=== PATIENT | male | born 1955 | race Caucasian/White ===

== ENCOUNTER → 2018-02-13 | Outpatient (CLI) | payer OTHER | LOC: GMAJ 11:00 | PROVIDERS: ATTEND Family Medicine | DX: Z12.5 Encounter for screening for malignant neoplasm of prostate (principal) ==

== ENCOUNTER → 2018-08-25 | Outpatient (CLI) | payer OTHER | LOC: GMAJ 14:38 | PROVIDERS: ATTEND Family Medicine | DX: Z12.5 Encounter for screening for malignant neoplasm of prostate (principal) ==

== ENCOUNTER → 2018-10-24 | Outpatient (CLI) | payer OTHER | LOC: LAB.O 10:56 | PROVIDERS: ATTEND Internal Medicine Nephrology | DX: N18.4 Chronic kidney disease, stage 4 (severe) (principal); Z79.899 Other long term (current) drug therapy ==

== ENCOUNTER → 2018-12-19 | Outpatient (CLI) | payer OTHER ==
--- NOTE | 2018-12-21 12:47 | US ---
EXAM DESCRIPTION: Renal Arteries CLINICAL HISTORY: 63 years Male, ESSENTIAL HYPERTENSION COMPARISON: None. FINDINGS: Renal artery ultrasound was performed. Peak systolic velocity abdominal aorta 71 cm/s The proximal right renal artery is not visualized. Peak systolic velocity mid right renal artery 69 cm/s, resistive index 0.77 Peak systolic velocity distal right renal artery 54 cm/s, resistive index 0.88 Right renal aortic ratio 1.0 The proximal left renal artery is not visualized. Peak systolic velocity mid left renal artery 86 cm/s, resistive index 0.66 Peak systolic velocity distal left renal artery 78 cm/s, resistive index 0.83 Left renal aortic ratio 1.2 IMPRESSION: Nonvisualization of the proximal renal arteries bilaterally with normal bilateral renal aortic ratios. If possible, CTA should be considered for further evaluation of the proximal renal arteries. Electronically signed by: Julián Patel MD 12/21/2018 12:44 PM CDT
== END ==
LOC: US 08:25
PROVIDERS: ATTEND Family Medicine
DX: I10 Essential (primary) hypertension (principal)